=== PATIENT | male | born 1990 | race Caucasian/White ===

== ENCOUNTER 2019-06-07 18:24 | Emergency (ER) | payer SELFPAY ==
[~2019-06-07] VITALS: Ht 177.8 cm; Wt 70.3 kg
[2019-06-07] MEDS ORDERED: IBU600 M1 PO (20:52)
== END 2019-06-07 21:02 | disposition home or self-care (01) ==
LOC: ED 18:24
DX: M79.641 Pain in right hand (principal); Z91.030 Bee allergy status; Z72.0 Tobacco use; W10.8XXA Fall (on) (from) other stairs and steps, initial encounter; Y93.89 Activity, other specified; Y92.89 Other specified places as the place of occurrence of the external cause; Y99.8 Other external cause status

== ENCOUNTER 2019-09-11 23:57 | Emergency (ER) | payer OTHER ==
[~2019-09-11] VITALS: Ht 177.8 cm; Wt 63.5 kg
[~2019-09-11 23:57] MED LIST: IBU600 M1 PO
[2019-09-12 00:58] LABS: BILIRUBIN NEGATIVE (NEGATIVE); BLOOD NEGATIVE (NEGATIVE); CLARITY CLEAR (CLEAR); COLOR YELLOW (YELLOW); GLUCOSE NEGATIVE (NEGATIVE); KETONE NEGATIVE (NEGATIVE); NITRITE NEGATIVE (NEGATIVE); UROBILINOGEN 0.2 E.U./dl (0.2-1.0)
[2019-09-12 00:59] LABS: LEUKO ESTERASE NEGATIVE (NEGATIVE)
[2019-09-12 01:03] LABS: URINE AMPHETAMINES > 1000 (1000ng/ml); URINE BARBITURATES < 200 (200ng/ml); URINE BENZODIAZEPINES < 200 (200ng/ml); URINE CANNABINOIDS (THC) > 50 (50ng/ml); URINE COCAINE > 300 (300ng/ml); URINE METHADONE < 300 (300ng/ml); URINE OPIATES > 300 (300ng/ml)
[2019-09-12 01:06] LABS: BACTERIA TRACE; URINE PHENCYCLIDINE < 25 (25ng/ml)
[2019-09-12] MEDS ORDERED: VIBRAMYCIN100 MG PO (01:18)
== END 2019-09-12 01:30 | disposition home or self-care (01) ==
LOC: ED 23:57
PROVIDERS: Emergency Medicine
DX: F19.10 Other psychoactive substance abuse, uncomplicated (principal); L24.9 Irritant contact dermatitis, unspecified cause; F17.200 Nicotine dependence, unspecified, uncomplicated; Z91.030 Bee allergy status

== ENCOUNTER 2019-10-07 23:23 | Emergency (ER) | payer OTHER ==
[~2019-10-07] VITALS: Ht 177.8 cm; Wt 65.8 kg
[~2019-10-07 23:23] MED LIST changes: +VIBRAMYCIN100 MG PO
[2019-10-08] MEDS ORDERED: ACYCLOVIR400 MG PO (00:22)
[2019-10-08] MEDS ORDERED: BENADRYL25 M2 PO (00:22)
[2019-10-08] MEDS ORDERED: ELIMITE 5%60 GM T (00:22)
== END 2019-10-08 00:45 | disposition home or self-care (01) ==
LOC: ED 23:23
DX: A60.01 Herpesviral infection of penis (principal); B86 Scabies; Z91.030 Bee allergy status

== ENCOUNTER 2021-12-18 21:02 | Emergency (ER) | payer OTHER ==
[~2021-12-18] VITALS: Ht 177.8 cm; Wt 59.0 kg
[~2021-12-18 21:02] MED LIST changes: +ACYCLOVIR400 MG PO; +BENADRYL25 M2 PO; +ELIMITE 5%60 GM T
[2021-12-18 22:11] LABS: BASO # 0.1 10*3/uL (0.0-0.1); BASO % 0.8 % (0.0-1.0); EOS # 0.2 10*3/uL (0.0-0.4); EOS % 1.4 % (1.0-4.0); HEMATOCRIT 38.2 % (42.0-52.0); LYMPH # 3.1 10*3/uL (1.3-4.4); LYMPH % 26.5 % (27.0-41.0); MEAN CELL VOLUME 95.5 fl (80.0-94.0); MEAN CORPUSCULAR HGB 32.8 pg (27.0-31.0); MEAN CORPUSCULAR HGB CONC 34.3 g/dl (33.0-37.0); MEAN PLATELET VOLUME 9.2 fl (9.6-12.3); MONO % 8.5 % (3.0-9.0); NEUT # 7.4 10*3/uL (2.3-7.9); NEUT % 62.5 % (47.0-73.0); PLATELET COUNT AUTOMATED 297 10*3/uL (130-400); RED CELL DISTRI WIDTH 11.5 % (0-14.5); WHITE BLOOD COUNT 11.8 10*3/uL (4.8-10.8)
[2021-12-18 22:27] LABS: ALKALINE PHOSPHATASE 73 U/L (45-117); BUN 18 mg/dl (7-24); CHLORIDE 104 mmol/L (98-107); CREATININE 1.12 mg/dL (0.70-1.30); LIPASE 86 U/L (73-393); POTASSIUM 3.9 mmol/L (3.5-5.1); SGOT/AST 27 IU/L (3-35); SGPT/ALT 24 U/L (12-78); SODIUM 140 mmol/L (136-145)
[2021-12-18 22:34] LABS: BILIRUBIN Negative (Negative); BLOOD Negative (Negative); CLARITY Turbid (Clear); COLOR Yellow (Yellow); GLUCOSE Negative (Negative); KETONE Trace (Negative); LEUKO ESTERASE Negative (Negative); NITRITE Negative (Negative); PH 7.5 (4.5-8.0)
[2021-12-18 22:43] LABS: BACTERIA 1+
== END 2021-12-19 01:39 | disposition left against medical advice (07) ==
LOC: ED 21:02
PROVIDERS: Physician Assistant
DX: R19.7 Diarrhea, unspecified (principal); R11.0 Nausea; Z91.030 Bee allergy status

== ENCOUNTER 2024-03-04 09:13 | Emergency (ER) | payer SELFPAY ==
[~2024-03-04] VITALS: Ht 180.3 cm; Wt 59.0 kg
[2024-03-04] MEDS ORDERED: Ketorolac Tromethamine 60 MG/2 ML VIAL IM ONE (09:25)
[2024-03-04] MEDS ORDERED: Dexamethasone Sodium Phospha 20 MG/5 ML VIAL IM ONE (09:25)
[2024-03-04] MEDS ORDERED: MELOXICAM15 MG PO (11:11)
[2024-03-04] MEDS ORDERED: CYCLOBENZAPRINE5 M3 PO (11:11)
== END 2024-03-04 11:13 | disposition home or self-care (01) ==
LOC: ED 09:13
DX: M62.830 Muscle spasm of back (principal); Z91.030 Bee allergy status; Z87.891 Personal history of nicotine dependence